=== PATIENT | female | born 1970 | race Caucasian/White ===

== ENCOUNTER 2017-04-07 12:01 | Emergency (ER) | payer OTHER ==
[~2017-04-07] VITALS: Ht 152.4 cm; Wt 90.2 kg
[2017-04-07 12:44] LABS: EOSINOPHIL (%) 2.9 % (0-5); EOSINOPHIL COUNT 0.2 K/uL (0-0.3); HEMATOCRIT 40.3 % (36.0-46.0); IMMATURE GRANULOCYTE (%) 0.1 % (0.0-0.7); INSTRUMENT ABS NEUTROPHIL CT 4.8 K/uL; LYMPHOCYTE COUNT 1.6 K/uL (1.0-2.8); MCH 33.2 PG (29.0-34.0); MCHC 32.5 G/DL (30.0-36.0); MEAN PLAT.VOLUME 9.8 uM^3 (9.5-12.4); MONOCYTE (%) 8.7 % (3-12); MONOCYTE COUNT 0.6 K/uL (0-0.8); NEUTROPHIL (%) 66.1 % (45-76); NEUTROPHIL COUNT 4.8 K/uL (1.8-6.4); PLATELET COUNT 181 K/uL (156-360); RBC DIS.WIDTH-SD 49.2 % (39-53); RED BLOOD COUNT 3.95 M/uL (3.80-5.20); WHITE BLOOD COUNT 7.2 K/uL (4.1-10.2)
[2017-04-07 12:58] LABS: CHLORIDE 115 mEq/L (99-109); POTASSIUM 3.7 mEq/L (3.7-5.4); SODIUM 142 mEq/L (136-147)
[2017-04-07 12:59] LABS: GLUCOSE 90 mg/dL (70-99)
[2017-04-07 13:01] LABS: ANION GAP 9 MEQ/L (2-14)
[2017-04-07 13:03] LABS: GFR ESTIMATE (CALCULATED) 57 mL/min/
[2017-04-07 13:04] LABS: UREA NITROGEN (BUN) 14 mg/dL (9-23)
[2017-04-07 13:05] LABS: TROP-I INTERPRETATION NEGATIVE; TROPONIN-I 0.05 ng/mL (0.0-0.30)
[2017-04-07] MEDS ORDERED: MOTRIN800 MG PO (15:38)
[2017-04-07 16:31] LABS: TROP-I INTERPRETATION NEGATIVE; TROPONIN-I < 0.01 ng/mL (0.0-0.30)
[2017-04-07 17:54] VITALS: BP 189/89
== END 2017-04-07 17:55 | disposition home or self-care (01) ==
LOC: EME 12:01
PROVIDERS: Emergency Medicine
DX: R07.81 Pleurodynia (principal)
CPT/HCPCS: 71010; 80048; 84484; 85025; 93005; 99281; 99284

== ENCOUNTER 2018-02-08 08:37 | Emergency (ER) | payer OTHER ==
[~2018-02-08] VITALS: Ht 152.4 cm; Wt 93.6 kg
[~2018-02-08 08:37] MED LIST: MOTRIN800 MG PO
[2018-02-08 11:00] VITALS: BP 130/88
[2018-02-08] MEDS ORDERED: MOTRIN600 MG PO ×2 (11:08→11:40)
== END 2018-02-08 11:17 | disposition home or self-care (01) ==
LOC: EME 08:37
DX: S40.012A Contusion of left shoulder, initial encounter (principal); S30.0XXA Contusion of lower back and pelvis, initial encounter; W18.30XA Fall on same level, unspecified, initial encounter; Y92.002 Bathroom of unspecified non-institutional (private) residence as the place of occurrence of the external cause; F32.9 Major depressive disorder, single episode, unspecified; F79 Unspecified intellectual disabilities
CPT/HCPCS: 72100; 73030; 73080; 99281; 99284